=== PATIENT | male | born 1970 | race Caucasian/White ===

== ENCOUNTER 2016-09-28 19:24 | Emergency (ER) | payer OTHER ==
--- NOTE | 2016-09-28 21:21 | EDM.PDOC ---
ED HPI GENERAL MEDICAL PROBLEM - General Stated Complaint: LACERATION Time Seen by Provider: 09/28/16 19:30 Source of Information: Reports: Patient History Limitations: Reports: No Limitations - History of Present Illness INITIAL COMMENTS - FREE TEXT/NARRATIVE: According to patient, he was cutting potatoes for supper, and accidentally cut his left thumb. has been bleeding. Able to make a fist. His last tetanus was in 2013. No other injuries. Onset: Today Severity: Mild Improves with: Reports: None Worsens with: Reports: None Associated Symptoms: Denies: Confusion, Chest Pain, Fever/Chills, Rash, Shortness of Breath, Syncope, Weakness ED ROS GENERAL - Review of Systems Review Of Systems: See Below Constitutional: Denies: Fever, Chills HEENT: Denies: Rhinitis, Sinus Problem, Throat Pain, Throat Swelling Respiratory: Denies: Shortness of Breath, Cough, Sputum Cardiovascular: Denies: Chest Pain, Lightheadedness GI/Abdominal: Denies: Abdominal Pain, Nausea, Vomiting : Denies: Discharge, Dysuria Skin: Denies: Pruritis, Rash ED EXAM, GENERAL - Physical Exam Exam: See Below Exam Limited By: No Limitations General Appearance: Alert, WD/WN, No Apparent Distress Eye Exam: Bilateral Eye: EOMI, PERRL Ears: Normal External Exam, Normal Canal, Hearing Grossly Normal, Normal TMs Ear Exam: Bilateral Ear: Auricle Normal, Canal Normal, TM normal Nose: Normal Inspection, Normal Mucosa, No Blood Throat/Mouth: Normal Inspection, Normal Lips, Normal Teeth, Normal Gums, Normal Oropharynx, Normal Voice, No Airway Compromise Head: Atraumatic, Normocephalic Neck: Normal Inspection, Supple, Non-Tender, Full Range of Motion Respiratory/Chest: No Respiratory Distress, Lungs Clear, Normal Breath Sounds, No Accessory Muscle Use, Chest Non-Tender Cardiovascular: Normal Peripheral Pulses, Regular Rate, Rhythm, No Edema, No Gallop, No JVD, No Murmur, No Rub Skin Exam: Warm, Intact, Other (Left thumb: There is a 2.5 cm curvilinear laceration over the palmar aspect of the distal thumb. The laceration extends into the subcutaneous tissue of the thumb. He does have good ROM of the thumb and normal opponens of the thumb.) ED GENERAL MEDICAL PROCEDURES - Laceration/Wound Repair Left Other Lac/wound length in cm: 2.5 (left thumb) Appearance: Subcutaneous Distal NVT: Neuro & Vascular Intact Anesthetic Type: Local Local Anesthesia - Lidocaine (Xylocaine): 1% Plain Local Anesthetic Volume: 2cc Skin Prep: Providone-Iodine (Betadine) Closed with: Sutures Suture Size: other (5-O) # of Sutures: 7 Suture Type: Other (ethilon) Sterile Dressing Applied: Provider Tetanus Status Addressed: Yes Complications: No Course - Vital Signs Text/Narrative:: The laceration over the thumb was closed under aseptic precautions. Tube dressing applied. Wound care discussed with patient. Advised elevation of the hand for next 24 hrs. Motrin 600mg 3 times daily as needed for pain Suture removal in 7 days. Departure - Departure Time of Disposition: 20:00 Disposition: Home, Self-Care 01 Condition: Fair Clinical Impression: Laceration of thumb - Discharge Information Instructions: Wound Infection, [id number], Stitches, Salvador, or Adhesive Wound Closure, [id number] Additional Instructions: Keep affected area clean and dry for next 24 hours. After 24 hours, remove dressing, and apply thin strip of antibacterial ointment, then cover with band- aid for next 2 days, after that you may leave open to air. Be sure to monitor site for signs and symptoms of infection present, including increased redness, increased swelling, increased pain or tenderness to touch, foul drainage and/or fever present. Should any of these symptoms occur, return to be seen. Follow up in 7 days with regular provider to have sutures removed. Call with any questions. - Problem List & Annotations (1) Laceration of thumb SNOMED Code(s): 375339544 Code(s): S61.019A - LACERATION W/O FOREIGN BODY OF THMB W/O DAMAGE TO NAIL, INIT Status: Acute - Problem List Review Problem List Initiated/Reviewed/Updated: Yes - Assessment/Plan Assessment:: Laceration of left thumb
[2016-09-29 02:39] VITALS: BP 158/92
== END 2016-09-28 20:20 | disposition home or self-care (01) ==
LOC: LB.ED 19:24
DX: S61.012A Laceration without foreign body of left thumb without damage to nail, initial encounter (principal); W45.8XXA Other foreign body or object entering through skin, initial encounter; Y93.89 Activity, other specified
CPT/HCPCS: 12001; 99283-25